=== PATIENT | male | born 1960 | race Caucasian/White ===

== ENCOUNTER → 2023-08-02 | Outpatient (CLI) | payer OTHER | LOC: COL.RAD 08:03 | DX: C90.00 Multiple myeloma not having achieved remission (principal) ==

== ENCOUNTER 2023-09-22 07:30 | Outpatient (RCR) | payer OTHER ==
[2023-09-15 07:53] VITALS: BP 119/80; PULSE 93; TEMP 95.9
--- NOTE | 2023-09-15 08:35 | NUR ---
Pt contacted B[facility] Triage Line at where he sees specialist. Nurse on Triage Line verifies that they do not routinely flush lines with heparin, only NS flushes. Dressing was changed using sterile technique. Dried blood noted under dressing. Pt states this has been present since line was recently placed. 3 chloraprep sponges used to clean area and remove as much dried blood as possible. Some remains present due to scabbing at incision/insertion site. Caps changed and 3 lumens flushed. Pt is encouraged to contact EU if dressing starts to loosen, as he states he's had some trouble with edges peeling up. He will return Monday for dressing/cap change, or sooner if needed. He is escorted out of dept to ED entrance with steady gait.
[~2023-09-22] VITALS: Ht 175.3 cm; Wt 76.0 kg
[~2023-09-22 07:30] MED LIST: COMPAZINE 110 MG/TAB PO; PAXLOVID 150-11 EACH PO; ZYLOPRIM 300MG300 MG PO
[2023-09-22 08:00] VITALS: BP 118/95; PULSE 92; TEMP 98.7
== END 2023-09-22 08:32 | disposition home or self-care (01) ==
LOC: EUO 07:30
DX: C90.00 Multiple myeloma not having achieved remission (principal); Z76.82 Awaiting organ transplant status

== ENCOUNTER → 2024-08-22 | Outpatient (CLI) | payer OTHER | LOC: COL.RAD 08:08 | DX: C90.00 Multiple myeloma not having achieved remission (principal) ==